=== PATIENT | female | born 1975 | race Caucasian/White ===

== ENCOUNTER → 2016-12-12 16:47 | Outpatient (CLI) | payer BC | END | disposition home or self-care (01) | LOC: D.MAMMO 08:30 | DX: R92.8 Other abnormal and inconclusive findings on diagnostic imaging of breast (principal) ==

== ENCOUNTER 2019-04-02 11:01 | Emergency (ER) | payer MEDICAID ==
[2019-04-02 11:06] VITALS: Wt 52.7 kg
[2019-04-02 12:20] LABS: BASOPHILS 0.1 % (0-2); EOSINOPHILS 0.7 % (0-7); HEMATOCRIT 45.6 % (36.0-48.0); HEMOGLOBIN 15.8 g/dL (12-16); IMMATURE GRANULOCYTES 0.2 % (0-5); LYMPHOCYTES 6.4 % (15-50); MCH 33.1 pg (26.0-34.0); MCHC 34.6 g/dL (31.0-37.0); MCV 95.6 fL (80.0-100.0); MEAN PLATELET VOLUME 9.9 fL (7.4-10.4); MONOCYTES 2.5 % (2-11); NEUTROPHILS 90.1 % (40-80); PLATELET COUNT 279 10x3/uL (130-400); RBC 4.77 10x6/uL (4.00-5.40); WBC 12.6 10x3/uL (4.8-10.8)
[2019-04-02 12:34] LABS: ALBUMIN 4.1 g/dL (3.4-5.0); ANION GAP 10.6 mmol/L (8-16); BILIRUBIN - TOTAL 0.47 mg/dL (0.2-1.3); CALCIUM 9.2 mg/dL (8.5-10.1); CARBON DIOXIDE 27.7 mmol/L (21.0-32.0); CREATININE - SERUM 1.1 mg/dL (0.6-1.3); POTASSIUM - SERUM 4.3 mmol/L (3.5-5.1); PROTEIN - SERUM 7.8 g/dL (6.4-8.2)
[2019-04-02] MEDS ORDERED: DOXYCYCLINE HY100 M2 PO (13:49)
[2019-04-02] MEDS ORDERED: TORADOL10 MG PO (13:49)
[2019-04-02 13:59] VITALS: BP 125/68
== END 2019-04-02 14:00 | disposition home or self-care (01) ==
LOC: D.ER 11:01
PROVIDERS: Family Medicine
DX: R22.9 Localized swelling, mass and lump, unspecified (principal)

== ENCOUNTER → 2020-05-02 13:30 | Outpatient (CLI) | payer MEDICAID ==
[~2020-05-02 13:30] MED LIST: DOXYCYCLINE HY100 M2 PO; TORADOL10 MG PO
== END | disposition home or self-care (01) ==
LOC: D.MAMMO 13:30
PROVIDERS: ATTEND Nurse Practitioner Family
DX: Z12.31 Encounter for screening mammogram for malignant neoplasm of breast (principal)

== ENCOUNTER 2020-06-06 17:30 | Outpatient (CLI) | payer MEDICAID | END 2020-06-06 23:59 | disposition home or self-care (01) | LOC: D.MAMMO 17:30 | PROVIDERS: ATTEND Nurse Practitioner Family | DX: R92.2 Inconclusive mammogram (principal) ==